=== PATIENT | female | born 1965 | race Caucasian/White ===

== ENCOUNTER 2023-08-21 08:47 | Outpatient (REF) | payer OTHER, SELFPAY ==
--- NOTE | ~2023-08-21 | XR_ITS ---
EXAMINATION: XR AP PELVIS XR STANDING BILATERAL KNEES XR AP AND LATERAL VIEWS OF EACH KNEE CLINICAL INFORMATION: Pain in unspecified. Pain in unspecified knee. COMPARISON: None available. TECHNIQUE: AP view of the pelvis. Standing view of bilateral knees. [place] and lateral views of each knee. FINDINGS: Pelvis: Degenerative changes in the imaged lower lumbar spine. Bilateral sacroiliac joints appear symmetric. Small pelvic calcifications are likely vascular. Moderate degenerative changes in the bilateral hips with joint space narrowing and lateral acetabular hypertrophic change. Right Knee: Joint effusion. Small medial and lateral marginal osteophytes. Advanced degenerative changes in the patellofemoral joint with joint space loss and hypertrophic change. Left Knee: Joint effusion. Small medial and lateral marginal osteophytes. Advanced degenerative changes in the patellofemoral joint with joint space loss and hypertrophic change. XR/XR knee LT 2V IMPRESSION: 1. Moderate degenerative changes in the bilateral hips. 2. Degenerative changes in the bilateral knees, advanced in the pelvic patellofemoral compartments. 3. Joint effusions in bilateral knees. 4. Degenerative changes in the imaged lower lumbar spine. Correlation with clinical exam recommended to determine further management. If there is concern for fracture or other underlying pathology, MRI could be obtained for further evaluation.
--- NOTE | ~2023-08-21 | XR_ITS ---
EXAMINATION: XR AP PELVIS XR STANDING BILATERAL KNEES XR AP AND LATERAL VIEWS OF EACH KNEE CLINICAL INFORMATION: Pain in unspecified. Pain in unspecified knee. COMPARISON: None available. TECHNIQUE: AP view of the pelvis. Standing view of bilateral knees. [place] and lateral views of each knee. FINDINGS: Pelvis: Degenerative changes in the imaged lower lumbar spine. Bilateral sacroiliac joints appear symmetric. Small pelvic calcifications are likely vascular. Moderate degenerative changes in the bilateral hips with joint space narrowing and lateral acetabular hypertrophic change. Right Knee: Joint effusion. Small medial and lateral marginal osteophytes. Advanced degenerative changes in the patellofemoral joint with joint space loss and hypertrophic change. Left Knee: Joint effusion. Small medial and lateral marginal osteophytes. Advanced degenerative changes in the patellofemoral joint with joint space loss and hypertrophic change. XR/XR knee standing BI IMPRESSION: 1. Moderate degenerative changes in the bilateral hips. 2. Degenerative changes in the bilateral knees, advanced in the pelvic patellofemoral compartments. 3. Joint effusions in bilateral knees. 4. Degenerative changes in the imaged lower lumbar spine. Correlation with clinical exam recommended to determine further management. If there is concern for fracture or other underlying pathology, MRI could be obtained for further evaluation.
--- NOTE | ~2023-08-21 | XR_ITS ---
EXAMINATION: XR AP PELVIS XR STANDING BILATERAL KNEES XR AP AND LATERAL VIEWS OF EACH KNEE CLINICAL INFORMATION: Pain in unspecified. Pain in unspecified knee. COMPARISON: None available. TECHNIQUE: AP view of the pelvis. Standing view of bilateral knees. [place] and lateral views of each knee. FINDINGS: Pelvis: Degenerative changes in the imaged lower lumbar spine. Bilateral sacroiliac joints appear symmetric. Small pelvic calcifications are likely vascular. Moderate degenerative changes in the bilateral hips with joint space narrowing and lateral acetabular hypertrophic change. Right Knee: Joint effusion. Small medial and lateral marginal osteophytes. Advanced degenerative changes in the patellofemoral joint with joint space loss and hypertrophic change. Left Knee: Joint effusion. Small medial and lateral marginal osteophytes. Advanced degenerative changes in the patellofemoral joint with joint space loss and hypertrophic change. XR/XR pelvis 1-2V IMPRESSION: 1. Moderate degenerative changes in the bilateral hips. 2. Degenerative changes in the bilateral knees, advanced in the pelvic patellofemoral compartments. 3. Joint effusions in bilateral knees. 4. Degenerative changes in the imaged lower lumbar spine. Correlation with clinical exam recommended to determine further management. If there is concern for fracture or other underlying pathology, MRI could be obtained for further evaluation.
--- NOTE | ~2023-08-21 | XR_ITS ---
EXAMINATION: XR AP PELVIS XR STANDING BILATERAL KNEES XR AP AND LATERAL VIEWS OF EACH KNEE CLINICAL INFORMATION: Pain in unspecified. Pain in unspecified knee. COMPARISON: None available. TECHNIQUE: AP view of the pelvis. Standing view of bilateral knees. [place] and lateral views of each knee. FINDINGS: Pelvis: Degenerative changes in the imaged lower lumbar spine. Bilateral sacroiliac joints appear symmetric. Small pelvic calcifications are likely vascular. Moderate degenerative changes in the bilateral hips with joint space narrowing and lateral acetabular hypertrophic change. Right Knee: Joint effusion. Small medial and lateral marginal osteophytes. Advanced degenerative changes in the patellofemoral joint with joint space loss and hypertrophic change. Left Knee: Joint effusion. Small medial and lateral marginal osteophytes. Advanced degenerative changes in the patellofemoral joint with joint space loss and hypertrophic change. XR/XR knee RT 2V IMPRESSION: 1. Moderate degenerative changes in the bilateral hips. 2. Degenerative changes in the bilateral knees, advanced in the pelvic patellofemoral compartments. 3. Joint effusions in bilateral knees. 4. Degenerative changes in the imaged lower lumbar spine. Correlation with clinical exam recommended to determine further management. If there is concern for fracture or other underlying pathology, MRI could be obtained for further evaluation.
== END 2023-08-21 08:48 | disposition home or self-care (01) ==
LOC: HO.HOSX 08:47
PROVIDERS: Visit Provider Orthopaedic Surgery
DX: M16.0 Bilateral primary osteoarthritis of hip (principal); M17.12 Unilateral primary osteoarthritis, left knee; M25.561 Pain in right knee
CPT/HCPCS: 72170; 73560; 73565

== ENCOUNTER 2023-08-21 08:50 | Outpatient (AMB) | payer OTHER, SELFPAY ==
--- NOTE | 2023-08-21 09:31 | A.OFFVIS_ITS ---
Intake Vital Signs 08/21/23 09:32 Height 5 ft 3 in Weight 153 lb BMI 27.1 Intake Visit Reasons: New P- LT Hip pain Intake Note: Ninfa is a 57 year old female who presents today as new patient with complaints of left hip pain. Patient reports that she is having pain and catching in the groin area. Symptoms have been ongoing for about a year now. She takes ibuprofen occasionally for pain. Pain is increased, with exercise and riding horses. Allergies No Known Allergies Allergy (Verified 08/21/23 09:34) HPI New P- LT Hip pain HPI Details Ninfa is a 57 year old woman who presents with complaints of left hip pain. She complains of pain with daily activity, worse with exercise or horseback riding. She describes pain and a catching sensation in her groin. She says her pain has been present for ~1 year now, and occurs almost daily , though she does occasionally have periods where she has no pain for several days. She reports some occasional burning pain in her left hip, which radiates down her leg. She also complains of left knee pain. She lives a very active lifestyle and feels limited by this pain and hitching sensation. She has been trying to work on losing & maintaining her weight for the last few years to ease her knee & hip pain. She does say she does not feel very limited by her hip pain, and that it is tolerable,but she says she has a high pain tolerance and usually pushes through pain to complete her activities. She denies any prior treatment and occasionally takes Ibuprofen. She is able to walk on flat ground without too much difficulty. She reports having left knee OA, and was told in the past she will need a knee replacement eventually. She reports dislocating her left kneecap many years ago . She has a hx of being a runner while she was younger. She complains of anterior knee pain, worse with using stairs, squatting, or kneeling activities. [facility] Social History (Updated 08/21/23 @ 09:34 by Yolanda Armenta CMA) Patient Tobacco Use Status: Never used Tobacco Current occupational status: employed Current occupation: Data Analist - Remote. Review of Systems Const All systems reviewed & are unremarkable except as noted in HPI and below Physical Exam Vital Signs: BMI result Body Mass Index 27.1 Const General: no acute distress, alert and awake Orientation/consciousness: patient oriented x3 HEENT Head: Yes normocephalic and Yes atraumatic Eyes EOM: EOMs intact bilaterally Resp Effort & Inspection: normal respiratory effort and able to speak in complete sentences Cardio Jugular venous distension: no JVD Skin General skin exam: turgor normal Rashes: no rashes Neuro General: patient oriented x3 Extrem Other: Mildly + impingment and [place] on left but near full rom. nl gait Left knee with 10-125 deg ROM and + lateral patellar tilt. Psych Appearance: grossly normal Affect: normal affect Attitude: cooperative Results Reviewed Results Reviewed: I personally reviewed relevant radiographs Moderate bilateral hip OA Assessment & Plan Assessment & Plan (1) Arthritis of left knee: Code(s): M17.12 - Unilateral primary osteoarthritis, left knee Plan: Chronic but not preventing her from being active and pain minimal (2) Primary localized osteoarthritis of both hips: Code(s): M16.0 - Bilateral primary osteoarthritis of hip Plan: Moderate OA with preserved motion. PT for gait mechanics and strengthening Plan Scribed for Shaquille Santos MD by Bandar Wilson, director biomedical engineering, on 08/21/23 at 9:45 AM, EST. Orders: Orders XR knee RT 2V 08/21/23 M25.569 - Pain in unspecified knee PT Evaluation and Treatment 08/21/23 M16.0 - Bilateral primary osteoarthritis of hip, M17.12 - Unilateral primary osteoarthritis, left knee XR pelvis 1-2V 08/21/23 M25.559 - Pain in unspecified hip XR knee standing BI 08/21/23 M25.569 - Pain in unspecified knee XR knee LT 2V 08/21/23 M25.569 - Pain in unspecified knee Coding Level of Care Code New Pt Level 4 (49168) Diagnoses Arthritis of left knee M17.12 Primary localized osteoarthritis of both hips M16.0
[2023-08-21 09:32] VITALS: BMI 27.1
== END 2023-08-21 10:43 | disposition home or self-care (01) ==
PROVIDERS: PCP Family Medicine; Visit Provider Orthopaedic Surgery
DX: M17.12 Unilateral primary osteoarthritis, left knee (principal); M16.0 Bilateral primary osteoarthritis of hip
CPT/HCPCS: 99204